=== PATIENT | male | born 1955 | race Caucasian/White ===

== ENCOUNTER 2018-12-12 07:56 | Day surgery (SDC) | payer OTHER ==
[~2018-12-12 07:56] MED LIST: XANAX0.25 MG PO; XANAX1 MG PO
== END 2018-12-12 11:40 | disposition home or self-care (01) ==
LOC: AMB-ENDOS 07:56
DX: K64.4 Residual hemorrhoidal skin tags (principal); K64.5 Perianal venous thrombosis